=== PATIENT | male | born 1955 | race Caucasian/White ===

== ENCOUNTER 2018-09-02 04:00 | Inpatient (IN) | payer SELFPAY ==
[~2018-09-02] VITALS: Ht 180.3 cm; Wt 85.0 kg
--- NOTE | 2018-09-02 04:40 | NUR ---
PT BIBSELF COMPLAINING OF REDDNESS AND SWELLING ON RIGHT HIP. PT NOTICED SMALL ABSCESS 3 DAYS AGO AND POKED THE SITE WITH A NEEDLE WHILE IN THE SHOWER. NOTED SURROUNDING REDDNESS, PT TENDER TO TOUCH. PT DENIES DISCHARGE, BLEEDING, OR FEVER. PT AMBULATORY TO ER BED 1. WILL CONTINUE TO MONITOR
--- NOTE | 2018-09-02 04:43 | NUR ---
MD AT BEDSIDE FOR EVALUATION
[2018-09-02] MEDS ORDERED: HYDROMORPHONE 1 MG/1 ML DISP.SYRIN IV ONE (05:00)
[2018-09-02] MEDS ORDERED: ONDANSETRON HCL/PF 4 MG/2 ML VIAL IVP ONE (05:00)
[2018-09-02] MEDS ORDERED: VANCOMYCIN 1 GM in IV D5W 250 ML IV ONE (05:00)
[2018-09-02] MEDS ORDERED: HYDROMORPHONE INJ 2 MG/ML DISP.SYRIN ONE (05:01)
[2018-09-02] MEDS ORDERED: VANCOMYCIN 1 GM VIAL ONE (05:01)
[2018-09-02] MEDS ORDERED: ONDANSETRON HCL/PF 4 MG/2 ML VIAL ONE (05:01)
--- NOTE | 2018-09-02 05:10 | NUR ---
TRIMMING DEPARTMENT BLOCKER AT BEDSIDE FOR BLOOD DRAW
[2018-09-02 05:28] LABS: BASOPHILS % (AUTO) 0.4 % (0.0-2.0); EOSINOPHILS % (AUTO) 0.7 % (0.0-6.0); HEMATOCRIT 38 % (39-51); HEMOGLOBIN 13.2 g/dL (13.5-17.5); LYMPHOCYTES # (AUTO) 1.9 /CMM (0.8-4.8); LYMPHOCYTES % (AUTO) 16.9 % (20.0-44.0); MEAN CORPUSCULAR HGB CONC 35 g/dl (31.0-36.0); MEAN CORPUSCULAR VOLUME 88 fL (80-96); MONOCYTES % (AUTO) 9.1 % (2.0-12.0); NEUTROPHILS # (AUTO) 8.3 /CMM (1.8-8.9); NEUTROPHILS % (AUTO) 72.9 % (43.0-81.0); PLATELET COUNT (AUTO) 171 /CMM (150-450); RED BLOOD CELL COUNT(AUTO) 4.36 MIL/uL (4.5-6.0); WHITE BLOOD COUNT (AUTO) 11.4 K/uL (4.3-11.0)
[2018-09-02 05:36] LABS: CALCIUM, SERUM 8.6 mg/dL (8.5-10.1); CREATININE 0.9 mg/dL (0.6-1.3); POTASSIUM 3.5 mmol/L (3.5-5.1)
[2018-09-02 05:42] LABS: ALBUMIN 2.9 g/dL (3.4-5.0); BILIRUBIN,DIRECT 0.3 mg/dL (0.0-0.2); BILIRUBIN,TOTAL 0.9 mg/dL (0.2-1.0); TOTAL PROTEIN, SERUM 7.6 g/dL (6.4-8.2)
[2018-09-02] MEDS ORDERED: IV NS 0.9% 1,000 ML BAG IV ONE (06:00)
--- NOTE | 2018-09-02 07:09 | NUR ---
GAVE REPORT TO DONNIE OTT FOR GIO
--- NOTE | 2018-09-02 09:49 | NUR ---
REPORT GIVEN TO [facility] FOR GIO.
--- NOTE | 2018-09-02 10:18 | NUR ---
TRANSFERRED PATIENT TO MED SURG TO ROOM 306-2 VIA GURNEY, IN NO APPARENT DISTRESS NOTED, DENIES ANY PAIN AT THIS TIME. MIKE ENROUTE CONTROLLER AND RECEIVED THE PT.
--- NOTE | 2018-09-02 10:20 | NUR ---
MS PRACTICE ADVISOR NOTES RECEIVED PT FROM ER NURSE IN STABLE CONDITION. PT WILL BE ADMITTED FOR CELLULITIS. PT IS A/O X4. NO SOB OR ACUTE SIGNS OF DISTRESS NOTED. BREATHING IS EVEN AND UNLABORED.IV TO RIGHT HAND NOTED TO BE PATENT AND INTACT. VSS. PT ON RA AND SATING WELL. NO COMPLAINTS OF PAIN AT THIS TIME. WOUND NOTED TO PT'S RIGHT HIP. PT S/P I & D IN ER. WILL CHANGE DRESSINGS PT'S DRAINAGE SEEPED THROUGH. NO ODOR NOTED. BELONGINGS VERIFIED BY ANESTHESIOLOGY FACULTY. PT ORIENTED TO ROOM AND USE OF CALL LIGHT. BED IN LOW LOCKED POSITION, SIDE RAILS UP X2, CALL LIGHT WITHIN REACH. WILL CONTINUE TO MONITOR
[2018-09-02 16:00] VITALS: BP 130/78
--- NOTE | 2018-09-02 17:26 | NUR ---
MD REMINDED IF ADMISSION ORDERS. PT STABLE AT THIS TIME.
--- NOTE | 2018-09-02 18:29 | NUR ---
MS RN CLOSING NOTES PT REMAINS STABLE. ALL NEEDS WERE MET DURING SHIFT. HE DENIES ANY PAIN AT THIS TIME. WOUND CARE RENDERED. STILL AWAITING ADMISSION ORDERS. MD STATES THAT SHE IS GETTING TO IT. SAFETY MEASURES REMAIN PLACE. WILL ENDORSE TO NIGHTSHIFT RN FOR GIO
--- NOTE | 2018-09-02 19:30 | NUR ---
MS/RN OPENING NOTES PT RECEIVED WITH EYES CLOSED, OPENS EYES TO NAME. ON ROOM AIR, BREATHING EVEN AND UNLABORED. DENIES SOB, NOTES PAIN / BUT STATES ITS TOLERABLE AND DOESNT WANT PAIN MEDICATION AT THIS TIME. IV TO RIGHT HAND PATENT AND INTACT. BED IN LOW/LOCKED POSITION WITH CALL LIGHT IN REACH. BILATERAL UPPER SIDE RAILS IN PLACE. AWAITING ADMITTING ORDERS. WILL CONTINUE TO MONITOR
[2018-09-02 20:00] VITALS: BP 142/77
--- NOTE | 2018-09-02 21:10 | NUR ---
MS/RN NOTES COMMUNICATIONS PROGRAMMER MD NOTIFIED THAT WE ARE STILL AWAITING ADMITTING ORDERS.
--- NOTE | 2018-09-02 23:10 | NUR ---
MS/RN NOTES FLAT LOCK MACHINE OPERATOR INFORMED PT THAT HIS GIRLFRIEND IS NOT ALLOWED TO SLEEP IN THE SAME BED THE PT BUT JESE OFFERED. PT IMMEDIATELY UPSET AND SAID HE IS LEAVING AMA. ENCOURAGED PT TO STAY AND RECEIVE TREATMENT/ABX FOR HIS THIGH, PT VERBALIZED UNDERSTANDING BUT STATES HE STILL WANTS TO LEAVE. REFUSING TO GO OVER & SIGN BELONGINGS LIST AND REFUSING TO SIGN AMA PAPERWORK. IV AND WRIST BAND REMOVED. MD MADE AWARE. ANOTHER NURSE WITNESSED AND SIGNED THAT THERE WERE NO BELONGINGS LEFT IN THE ROOM. PT DEMANDED FOR FLAT LOCK MACHINE OPERATOR'S FULL NAME AND NURSING SUP. PHONE NUMBER. STATED THAT HE "WILL HAVE HIS HISTORY DEPARTMENT CHAIR CONTACT YOU". CHEMIST NOTIFIED.
== END 2018-09-02 23:10 | disposition left against medical advice (07) | DRG 603 ==
LOC: ER 04:04 → MED 08:44
PROVIDERS: ADMIT Internal Medicine; ATTEND Internal Medicine
DX: L02.415 Cutaneous abscess of right lower limb (principal); L03.115 Cellulitis of right lower limb; F11.11 Opioid abuse, in remission
CPT/HCPCS: 36415; 80048-TC; 80076-TC; 83605-TC; 85025-TC; 85730-TC; 87040-TC; 87081-TC; A6253; A6403; A6407; G0378; J1170; J2405; J3370; J7030